=== PATIENT | male | born 1975 | race Caucasian/White ===

== ENCOUNTER 2025-10-01 03:49 | Emergency (ER) | payer BC ==
[~2025-10-01] VITALS: Ht 175.3 cm; Wt 111.0 kg
[2025-10-01 04:01] VITALS: O2SAT 100
[2025-10-01] MEDS: MECLIZINE 25MG TABLET PO ONE (05:04)
[2025-10-01] MEDS: ACETAMINOPHEN 325MG TABLET PO ONE (05:04)
[2025-10-01 05:11] LABS: BASOPHILS % 1.0 % (0.0-2.0); EOSINOPHILS % 0.3 % (0.0-5.0); HEMATOCRIT. 38.1 % (42.0-52.0); HEMOGLOBIN. 12.8 g/dL (14.0-18.0); LYMPHOCYTES % 16.7 % (20.0-50.0); MEAN PLATELET VOLUME 7.6 fl (7.4-10.4); MONOCYTES % 7.0 % (2.0-8.0); NEUTROPHILS % 75.0 % (40.0-76.0); PLATELET 330 x1000/uL (130-400); RED BLOOD CELL COUNT 4.44 mill/uL (4.7-6.1); RED CELL DISTRIBUTION WIDTH 13.2 % (11.6-14.6)
[2025-10-01 05:22] LABS: INR 1.0
[2025-10-01 05:26] LABS: CREATININE 0.8 mg/dL (0.6-1.3); UREA NITROGEN BLOOD 15 mg/dL (9-23)
[2025-10-01 05:27] LABS: TROPONIN I HIGH SENSITIVITY 6 ng/L (3.0-53)
[2025-10-01 05:28] LABS: ASPARTATE AMINOTRANSFERASE 26 IU/L (<34); BILIRUBIN DIRECT 0.1 mg/dL (<=3.0)
[2025-10-01 05:29] LABS: BILIRUBIN TOTAL 0.5 mg/dL (0.1-1.0); PROTEIN TOTAL 6.7 g/dL (6.0-8.3)
[2025-10-01] MEDS: IOHEXOL-350 100 ML BOTTLE ONE (07:24)
[2025-10-01] MEDS: KETOROLAC 30MG/ML VIAL IV ONE (07:42)
[2025-10-01] MEDS: METOCLOPRAMIDE HCL 10MG/2ML VIAL IV ONE (07:42)
[2025-10-01] MEDS: SODIUM CHLORIDE 0.9% 1,000 ML IV ONE (07:43)
[2025-10-01] MEDS ORDERED: TOPUD PO (08:11)
[2025-10-01 08:29] VITALS: BP 140/104; PULSE 101; RESP 25; TEMP 37; O2SAT 100
== END 2025-10-01 08:41 | disposition home or self-care (01) ==
LOC: ER 03:49 → CANBEDREQ 08:12 → ER 08:41
DX: G43.909 Migraine, unspecified, not intractable, without status migrainosus (principal); I10 Essential (primary) hypertension; I49.1 Atrial premature depolarization; R06.02 Shortness of breath; Z88.1 Allergy status to other antibiotic agents; Z88.2 Allergy status to sulfonamides; Z79.899 Other long term (current) drug therapy
CPT/HCPCS: 80076; 80048; 80320; 83880; 85025; 85610; 85730; 84484; 36415; 70496; 70498; 70450; 99285; Q9967; J8597; J1885; J2765; J7030; Z7610; G0480

== ENCOUNTER 2025-10-02 23:50 | Emergency (ER) | payer BC ==
[~2025-10-02] VITALS: Ht 177.8 cm; Wt 91.0 kg
[~2025-10-02 23:50] MED LIST: TOPUD PO
[2025-10-02 23:57] VITALS: O2SAT 99
[2025-10-03 01:34] LABS: BASOPHILS % 0.4 % (0.0-2.0); EOSINOPHILS % 0.9 % (0.0-5.0); HEMATOCRIT. 41.4 % (42.0-52.0); HEMOGLOBIN. 13.8 g/dL (14.0-18.0); LYMPHOCYTES % 12.5 % (20.0-50.0); MEAN PLATELET VOLUME 7.4 fl (7.4-10.4); MONOCYTES % 4.7 % (2.0-8.0); NEUTROPHILS % 81.5 % (40.0-76.0); PLATELET 353 x1000/uL (130-400); RED BLOOD CELL COUNT 4.76 mill/uL (4.7-6.1); RED CELL DISTRIBUTION WIDTH 13.2 % (11.6-14.6)
[2025-10-03 01:50] LABS: CREATININE 0.8 mg/dL (0.6-1.3); UREA NITROGEN BLOOD 16 mg/dL (9-23)
[2025-10-03 01:51] LABS: TROPONIN I HIGH SENSITIVITY 7 ng/L (3.0-53)
[2025-10-03 01:52] LABS: ASPARTATE AMINOTRANSFERASE 30 IU/L (<34); BILIRUBIN DIRECT 0.2 mg/dL (<=3.0); BILIRUBIN TOTAL 0.7 mg/dL (0.1-1.0); PROTEIN TOTAL 7.1 g/dL (6.0-8.3)
[2025-10-03] MEDS: MECLIZINE 25MG TABLET PO ONE (02:27)
[2025-10-03] MEDS: CLONAZEPAM 0.5MG TABLET PO ONE (03:19)
[2025-10-03 03:22] VITALS: BP 139/96; PULSE 91; RESP 26; TEMP 36.7; O2SAT 100
== END 2025-10-03 03:40 | disposition left against medical advice (07) ==
LOC: ER 23:50 → EDBEDREQ 10-03 02:00 → EDBEDREQTM 10-03 02:00 → ENRESERV 10-03 02:20 → ER 10-03 03:40 → CMPBEDREQ 10-03 07:32
DX: R42 Dizziness and giddiness (principal); G43.909 Migraine, unspecified, not intractable, without status migrainosus; Z53.29 Procedure and treatment not carried out because of patient's decision for other reasons; Z88.1 Allergy status to other antibiotic agents; Z88.2 Allergy status to sulfonamides
CPT/HCPCS: 99285; 71045; 80076; 80048; 83690; 85025; 84484; 36415; 93005; J8597